=== PATIENT | male | born 1980 | race Caucasian/White ===

== ENCOUNTER → 2016-12-26 | Outpatient (CLI) | payer OTHER ==
--- NOTE | 2016-12-26 18:10 | US ---
EXAMINATION TYPE: US venous doppler duplex LE LT DATE OF EXAM: 12/26/2016 5:35 PM COMPARISON: NONE CLINICAL HISTORY: M79.605 Pain in lower limb. SIDE PERFORMED: Left VESSELS IMAGED: External Iliac Vein (EIV) Common Femoral Vein Deep Femoral Vein Greater Saphenous Vein * Femoral Vein Popliteal Vein Small Saphenous Vein * Proximal Calf Veins (* superficial vessels) No filling defect identified. Normal compressibility seen. Left Leg: Negative for DVT
== END | disposition home or self-care (01) ==
LOC: RADUSMAIN 17:31
PROVIDERS: ATTEND Family Medicine
DX: M79.605 Pain in left leg (principal)

== ENCOUNTER → 2018-01-19 | Outpatient (CLI) | payer OTHER | END | disposition home or self-care (01) | LOC: LABWHC1 09:27 | PROVIDERS: ATTEND Psychiatry & Neurology Pain Medicine | DX: E55.9 Vitamin D deficiency, unspecified (principal) | CPT/HCPCS: 36415; 82306 ==

== ENCOUNTER 2020-12-11 06:36 | Day surgery (SDC) | payer OTHER ==
[2020-12-07 11:48] VITALS: BMI 38.6
[~2020-12-11 06:36] MED LIST: LACTATED RINGERS 1,000 ML IV SCH
[2020-12-11 07:17] VITALS: TEMP 96.9
[2020-12-11 07:20] LABS: Glucose,Whole Blood 194 mg/dL (75-99)
[2020-12-11] MEDS ORDERED: PROPOFOL 10 MG/ML 20 ML VIAL IV ONE (07:50)
--- NOTE | 2020-12-11 08:31 | P.PCN ---
Date of Procedure: 12/11/20 Description of Procedure: Brief history: Patient is a pleasant 40-year-old male presenting for outpatient esophagogastroduodenoscopy and colonoscopy for evaluation of anemia. Patient reports a remote history of EGD and colonoscopy in the past. No family history of colon cancer or IBD. He denies any melena but occasionally see some bright red blood per rectum. Procedure performed: Esophagogastroduodenoscopy with biopsy Colonoscopy with polypectomy Estimated blood loss: Minimal. Preoperative diagnosis: Anemia, microcytic anemia, bright red blood per rectum Anesthesia: MAC Procedure: After informed consent was obtained from the patient was brought into the endoscopy unit and IV sedation was administered by anesthesia under continuous monitoring. Initially upper endoscopy was done. The Olympus GF 190 video endoscope was inserted into the mouth and esophagus intubated without any difficulty and was gradually advanced into the stomach and duodenum and carefully examined. The bulb and second part of the duodenum appeared normal, with biopsies taken to rule out celiac sprue. The scope was then withdrawn into the stomach adequately insufflated with air and upon careful examination the antrum and body, cardia and fundus appeared normal, except for some mild saba thema scattered throughout the antrum and body suggestive of mild gastritis with biopsies taken. The scope was then withdrawn into the esophagus. The GE junction was located at 43 cm to the incisors and biopsied. It appeared regular with no erythema erosions or ulcerations. Rest of the esophagus appeared normal. Patient tolerated the procedure well. At this time the patient continued to remain sedation. Initial digital rectal examination was normal. Olympus CF 190 video colonoscope was then inserted into the rectum and gradually advanced to the cecum without any difficulty. Careful examination was performed as the scope was gradually being withdrawn. The prep was excellent. The cecum, ascending colon, transverse colon, descending colon, sigmoid colon and rectum appeared normal, the terminal ileum was intubated and appeared normal. 13 mm flat transverse colon polyp removed cold snare polypectomy. Cold snare polypectomy of polyps measuring 3 mm to 5 mm in size from the transverse colon 2, descending colon, and sigmoid colon. Retroflexion was performed in the rectum and no lesions were noted, low-grade internal hemorrhoids. Patient tolerated the procedure well. Impression: 1. Mild gastritis. Biopsies of the duodenum, antrum body and GE junction. 2. Large flat transverse colon polyp removed with cold snare polypectomy. Small to medium polyps removed with cold snare from the transverse colon 2, descending colon and sigmoid colon. Internal hemorrhoids. Recommendations: Findings of this examination were discussed with the patient as well as His . Okay to resume diet. Okay to resume medications. Await pathology from biopsies and polypectomy. Follow-up with primary care physician as previously scheduled. Recommendation is for repeat colonoscopy in 3 years for high risk colon polyps pending pathology from polypectomies.
[2020-12-11 09:30] VITALS: BP 125/76; PULSE 70; RESP 20
== END 2020-12-11 09:00 | disposition home or self-care (01) ==
LOC: ORWHC2ENDO 06:36
PROVIDERS: ATTEND Internal Medicine
DX: D12.4 Benign neoplasm of descending colon (principal); D12.5 Benign neoplasm of sigmoid colon; D12.3 Benign neoplasm of transverse colon; K64.8 Other hemorrhoids; K29.51 Unspecified chronic gastritis with bleeding; K21.9 Gastro-esophageal reflux disease without esophagitis; K22.9 Disease of esophagus, unspecified; D50.9 Iron deficiency anemia, unspecified; E11.9 Type 2 diabetes mellitus without complications; I10 Essential (primary) hypertension; E78.5 Hyperlipidemia, unspecified; Z91.018 Allergy to other foods; Z79.84 Long term (current) use of oral hypoglycemic drugs; Z79.899 Other long term (current) drug therapy; Z79.1 Long term (current) use of non-steroidal anti-inflammatories (NSAID); Z98.890 Other specified postprocedural states
CPT/HCPCS: 88305; 45385; 43239; J2704

== ENCOUNTER 2021-09-07 16:55 | Emergency (ER) | payer OTHER ==
[2021-09-07] MEDS ORDERED: ACETAMINOPHEN TAB 500 MG TAB PO STA (22:17)
[2021-09-07] MEDS ORDERED: SODIUM CHLORIDE 0.9% 1,000 ML IV STA (22:17)
[2021-09-07] MEDS ORDERED: IBUPROFEN 600 MG TAB PO STA (22:17)
[2021-09-07] MEDS ORDERED: ONDANSETRON 4 MG/2 ML VIAL IVP STA (22:17)
[2021-09-07] MEDS ORDERED: SODIUM CHLORIDE 0.9% 50 ML IVPB ONE (22:45)
--- NOTE | 2021-09-07 22:53 | XR ---
EXAMINATION TYPE: XR chest 1V portable DATE OF EXAM: 09/07/2021 COMPARISON: NONE HISTORY: Cough TECHNIQUE: Single view FINDINGS: There is some patchy infiltrate and atelectasis in both lung duenas. This is more than the right upper lobe. There is no heart failure. Heart size is normal. There is no pleural effusion. Bony thorax is intact. IMPRESSION: Mild bilateral pneumonia and atelectasis. No heart failure seen.
[2021-09-07] MEDS ORDERED: CASIRIVIMAB/IMDEVIMAB (EUA) 1,200 MG in SODIUM CHLORIDE 0.9% 100 ML IVPB ONE (23:00)
[2021-09-07 23:29] VITALS: BP 153/72
--- NOTE | 2021-09-08 00:34 | ED ---
URI HPI - General Chief Complaint: Upper Respiratory Infection Stated Complaint: IESHA/Cough Time Seen by Provider: 09/07/21 22:03 Source: patient, RN notes reviewed Mode of arrival: ambulatory Limitations: no limitations - History of Present Illness Initial Comments: Patient is a 41-year-old male, with history of diabetes, hypertension, presenting to the emergency department with worsening cough and congestion over the past few days. Patient states he was diagnosed with a sinus infection on Friday and was prescribed amoxicillin as well as a steroid taper pack. He states his symptoms have persisted so he came in for evaluation. He's been having fever, chills, some mild nausea. He only feels short of breath when he is coughing a lot. No chest pains. Patient has been fully vaccinated against Covid. He has no further complaints. Upon arrival to the ER his temperature is 100.3, pulse is 110, 92% on room air. Patient did not take any Tylenol or Motrin prior to arrival. - Related Data Home Medications Medication Instructions Recorded Confirmed Losartan/Hydrochlorothiazide 1 each PO DAILY 08/28/15 12/11/20 [Losartan-Hctz 100-25 mg Tab] Simvastatin [Zocor] 20 mg PO DAILY 08/28/15 12/11/20 amLODIPine [Norvasc] 10 mg PO DAILY 08/28/15 12/11/20 metFORMIN HCL [Glucophage] 1,000 mg PO BID 08/28/15 12/11/20 glipiZIDE [Glucotrol] 5 mg PO AC-BRKFST 09/08/16 12/11/20 Vit C. 1 tab PO DAILY 12/07/20 12/11/20 Vit D3 1 tab PO DAILY 12/07/20 12/11/20 Previous Rx's Medication Instructions Recorded Ibuprofen [Motrin] 800 mg PO Q6HR PRN #20 tab 08/28/15 Albuterol Inhaler [Ventolin Hfa 1 puff INHALATION RT-QID PRN #8 gm 09/08/21 Inhaler] Dexamethasone [Decadron] 6 mg PO DAILY 7 Days #7 tablet 09/08/21 Allergies Allergy/AdvReac Type Severity Reaction Status Date / Time strawberry Allergy Rash/Hives Verified 09/07/21 18:32 Review of Systems ROS Statement: Those systems with pertinent positive or pertinent negative responses have been documented in the HPI. ROS Other: All systems not noted in ROS Statement are negative. Past Medical History Past Medical History: Diabetes Mellitus, Hyperlipidemia, Hypertension History of Any Multi-Drug Resistant Organisms: None Reported Past Surgical History: Hernia Repair Past Anesthesia/Blood Transfusion Reactions: No Reported Reaction Past Psychological History: No Psychological Hx Reported Smoking Status: Never smoker Past Alcohol Use History: None Reported Past Drug Use History: None Reported - Past Family History Mother Family Medical History: Cancer General Exam - General Exam Comments Initial Comments: GENERAL: Patient is well-developed and well-nourished. Patient is nontoxic and in no acute distress. HEAD: Atraumatic, normocephalic. EYES: Pupils equal round and reactive to light, extraocular movements intact, sclera anicteric, conjunctiva are normal. Eyelids were unremarkable. ENT: TMs normal, nares patent, oropharynx clear without exudates. Moist mucous membranes. NECK: Normal range of motion, supple without lymphadenopathy or JVD. LUNGS: Unlabored respirations. Breath sounds clear to auscultation bilaterally and equal. No wheezes rales or rhonchi. HEART: Tachycardia rate and rhythm without murmurs, rubs or gallops. ABDOMEN: Soft, nontender, normoactive bowel sounds. No guarding, no rebound. No masses appreciated. : Deferred MUSCULOSKELETAL: Normal extremities with adequate strength and normal range of motion, no pitting or edema. No clubbing or cyanosis. NEUROLOGICAL: Patient is alert and oriented x 3. SKIN: Warm, Dry, normal turgor, no rashes or lesions noted. Limitations: no limitations Course Vital Signs 09/07/21 09/07/21 09/08/21 18:29 23:28 00:46 Temperature 100.3 F H 99 F 98.5 F Pulse Rate 110 H 100 95 Respiratory 24 18 16 Rate Blood Pressure 138/72 153/72 O2 Sat by Pulse 92 L 94 L 95 Oximetry Medical Decision Making - Medical Decision Making Patient is a 41-year-old male here with cough and congestion over the past week. He was diagnosed sinus infection 4 days ago, prescribed amoxicillin and steroid taper pack. He did arrive slightly febrile, tachycardia. His a rapid Covid is positive. He did agree monoclonal antibodies. Patient was also given fluids, Zofran and Tylenol Motrin. He does report some mild improvement of symptoms. Chest x-ray shows viral pneumonia. Patient is stable for discharge. His pulse ox has stayed above 9495% on room air. He will continue on steroids, inhaler for his symptoms. He did take Tylenol Motrin for fever. He is agreeable to this plan of care. Return parameters were discussed with him and he verbalized understanding. - Lab Data Lab Results 09/07/21 Range/Units 18:35 Coronavirus (PCR) Detected A (Not Detectd) Disposition Clinical Impression: Pneumonia due to COVID-19 virus Disposition: HOME SELF-CARE Condition: Stable Instructions (If sedation given, give patient instructions): Coronavirus Disease 2019 (COVID-19) Additional Instructions: Please return to the Emergency Department if symptoms worsen or any other concerns. Take steroids and use inhaler as prescribed. May use [id number] cough suppressant. Continue to increase your fluids. Take Tylenol and/or Motrin for fever control. Follow up with your primary care as needed. Prescriptions: Dexamethasone [Decadron] 6 mg PO DAILY 7 Days #7 tablet Albuterol Inhaler [Ventolin Hfa Inhaler] 1 puff INHALATION RT-QID PRN #8 gm PRN Reason: Shortness Of Breath Is patient prescribed a controlled substance at d/c from ED?: No Referrals: Nonstaff,Physician [Primary Care Provider] - 1-2 days Time of Disposition: 00:33
[2021-09-08 00:47] VITALS: PULSE 95; RESP 16; TEMP 98.5
== END 2021-09-08 00:50 | disposition home or self-care (01) ==
LOC: EC 16:55
DX: U07.1 COVID-19 (principal); J12.82 Pneumonia due to coronavirus disease 2019; E11.9 Type 2 diabetes mellitus without complications; I10 Essential (primary) hypertension; E78.5 Hyperlipidemia, unspecified; Z79.84 Long term (current) use of oral hypoglycemic drugs
CPT/HCPCS: 99285 ×2; 96375 ×2; 87635; 71045; M0243; J2405; Q0243; 96361; 96374

== ENCOUNTER 2023-12-05 06:36 | Day surgery (SDC) | payer BC, OTHER ==
[2023-12-03 09:12] VITALS: BMI 39.3
[2023-12-05] MEDS: LACTATED RINGERS 1,000 ML IV ONE (06:45)
[2023-12-05 07:04] LABS: Glucose,Whole Blood 147 mg/dL (70-110)
[2023-12-05 07:27] VITALS: TEMP 97.3
[2023-12-05] MEDS ORDERED: LIDOCAINE 1% INJ 10MG/ML (20 ML MDV) ONE (07:43)
[2023-12-05] MEDS ORDERED: PROPOFOL 10 MG/ML 20 ML VIAL IV ONE (07:43)
--- NOTE | 2023-12-05 08:04 | P.PCN ---
Date of Procedure: 12/05/23 Procedure(s) Performed: Brief history: Patient is a pleasant 43-year-old white male scheduled for an elective upper endoscopy as well as colonoscopy as a part of evaluation of I deficiency anemia and history of colon polyps. Last colonoscopy was 3 years ago and was noted to have multiple colon polyps Procedure performed: Esophagogastroduodenoscopy with biopsy Colonoscopy Preoperative diagnosis: Iron deficiency anemia History of colon polyps Anesthesia: MAC Procedure: After informed consent was obtained from the patient was brought into the endoscopy unit and IV sedation was administered by anesthesia under continuous monitoring. Initially upper endoscopy was done. The Olympus GF 160 video endoscope was inserted inserted into the mouth and esophagus intubated without any difficulty and was gradually advanced into the stomach and duodenum and carefully examined. The bulb and second part of the duodenum appeared normal. Biopsies were done from the duodenum to rule out celiac disease. The scope was then withdrawn into the stomach adequately insufflated with air and upon careful examination the antrum had mild gastritis and biopsies were done from this area. Mucosa of the body, cardia and fundus appeared normal. The scope was then withdrawn into the esophagus. The GE junction was located at 40 cm to the incisors. It appeared regular with no erythema erosions or ulcerations. Rest of the esophagus appeared normal. Patient tolerated the procedure well. At this time the patient continued to remain sedation. Initial digital rectal examination was normal. Olympus CF 160 video colonoscope was then inserted into the rectum and gradually advanced to the cecum without any difficulty. Careful examination was performed as the scope was gradually being withdrawn. The prep was excellent. The cecum, ascending colon, transverse colon, descending colon, sigmoid colon and rectum appeared normal. Retroflexion was performed in the rectum and no lesions were noted. Patient tolerated the procedure well. Impression: 1. Upper endoscopy revealed mild antral gastritis but no evidence of esophagitis or peptic ulcer disease 2. Colonoscopy was within normal limits with no evidence of colorectal neoplasia Recommendations: Findings of this examination were discussed with the patient as well as his family. He was advised to follow with the biopsy results. Recommend repeat colonoscopy in 5 years because of prior history of colon polyps..
[2023-12-05 08:14] LABS: Glucose,Whole Blood 140 mg/dL (70-110)
[2023-12-05 08:29] VITALS: BP 123/79; PULSE 98; RESP 20
== END 2023-12-05 09:06 | disposition home or self-care (01) ==
LOC: ORWHC2ENDO 06:36
PROVIDERS: ATTEND Internal Medicine Gastroenterology
DX: Z12.11 Encounter for screening for malignant neoplasm of colon (principal); D50.9 Iron deficiency anemia, unspecified; K29.50 Unspecified chronic gastritis without bleeding; E78.5 Hyperlipidemia, unspecified; E11.9 Type 2 diabetes mellitus without complications; K21.9 Gastro-esophageal reflux disease without esophagitis; E66.01 Morbid (severe) obesity due to excess calories; Z79.84 Long term (current) use of oral hypoglycemic drugs; Z79.899 Other long term (current) drug therapy; Z86.010 Personal history of colon polyps; Z68.45 Body mass index [BMI] 70 or greater, adult
CPT/HCPCS: 45378; 43239; J2001; J2704; 88305

== ENCOUNTER 2024-12-18 10:06 | Emergency (ER) | payer BC ==
[2024-12-18] MEDS: KETOROLAC 15 MG/ML 1 ML VIAL IM STA (11:34)
[2024-12-18] MEDS: ORPHENADRINE 30 MG/ML 2 ML VIAL IM STA (11:35)
[2024-12-18] MEDS: methylPREDNISolone SOD SUCCI 125 MG/2 ML VIAL IM ONE (11:35)
[2024-12-18] MEDS: LIDOCAINE 4% PATCH TOPICAL ONE (11:35)
--- NOTE | 2024-12-18 11:38 | ED ---
Back Pain [facility] - General Chief Complaint: Back Pain/Injury Stated Complaint: Back pain Time Seen by Provider: 12/18/24 10:29 Source: patient Mode of arrival: ambulatory Limitations: no limitations - History of Present Illness Initial Comments: This is a 44-year-old male with history of back pain presenting with left lower back pain (08/05) x 6 days. Patient states pain is worsening with radiating pain traveling to left foot. States pain worsens when seated and weightbearing. Endorses recently receiving lumbar x-ray yesterday which indicated spondy lolisthesis, arthropathy and degenerative disc disease. Endorses use of ibuprofen, Aleve and Flexeril with minimal relief. Denies saddle paresthesia or urinary incontinence/retention. MD Complaint: back pain Onset/Timin -: days(s) Similar Symptoms Previously: Yes Radiation: left leg Severity scale (1-10): 10 Consistency: constant Improves With: immobilization Worsens With: movement, sitting upright, walking Associated Symptoms: difficulty walking Treatments Prior to Arrival: NSAIDS, other medications (Flexeril) - Related Data Home Medications Medication Instructions Recorded Confirmed Losartan/Hydrochlorothiazide 1 each PO DAILY 08/28/15 12/05/23 [Losartan-Hctz 100-25 mg Tab] Simvastatin [Zocor] 20 mg PO HS 08/28/15 12/05/23 amLODIPine [Norvasc] 10 mg PO DAILY 08/28/15 12/05/23 metFORMIN HCL [Glucophage] 500 mg PO BID 08/28/15 12/05/23 Ascorbic Acid [Vitamin C] 1,000 mg PO DAILY 12/03/23 12/05/23 Cholecalciferol [Vitamin D3 (125 125 mcg PO DAILY 12/03/23 12/05/23 Mcg = 5000 Iu)] Montelukast [Singulair] 10 mg PO HS 12/03/23 12/05/23 Omeprazole 20 mg PO DAILY 12/03/23 12/05/23 Semaglutide [Ozempic] 2 mg SQ MO 12/03/23 12/05/23 glipiZIDE [Glucotrol] 10 mg PO HS 12/03/23 12/05/23 Previous Rx's Medication Instructions Recorded Ibuprofen [Motrin] 800 mg PO Q6HR PRN #20 tab 08/28/15 Cyclobenzaprine [Flexeril] 10 mg PO TID PRN #15 tab 12/18/24 Ibuprofen [Motrin] 800 mg PO Q8HR PRN #30 tab 12/18/24 Lidocaine 4% Patch 1 patch TOPICAL Q24H PRN #10 patch 12/18/24 predniSONE 50 mg PO DAILY #5 tab 12/18/24 Allergies Allergy/AdvReac Type Severity Reaction Status Date / Time strawberry Allergy Rash/Hives Verified 12/18/24 10:13 Review of Systems ROS Statement: Those systems with pertinent positive or pertinent negative responses have been documented in the HPI. ROS Other: All systems not noted in ROS Statement are negative. Past Medical History Past Medical History: Diabetes Mellitus, GERD/Reflux, Hyperlipidemia, Hypertension Additional Past Medical History / Comment(s): SEASONAL ALLERGIES History of Any Multi-Drug Resistant Organisms: None Reported Past Surgical History: Hernia Repair Additional Past Surgical History / Comment(s): COLONOSCOPY/EGD Past Anesthesia/Blood Transfusion Reactions: No Reported Reaction Past Psychological History: No Psychological Hx Reported Smoking Status: Never smoker Past Drug Use History: None Reported - Past Family History Mother Family Medical History: Cancer General Exam General appearance: alert, in no apparent distress Head exam: Present: atraumatic, normocephalic, normal inspection Eye exam: Present: normal appearance, PERRL, EOMI. Absent: scleral icterus, conjunctival injection, periorbital swelling ENT exam: Present: normal exam, mucous membranes moist Neck exam: Present: normal inspection. Absent: tenderness, meningismus, lymphadenopathy Respiratory exam: Present: normal lung sounds bilaterally. Absent: respiratory distress, wheezes, rales, rhonchi, stridor Cardiovascular Exam: Present: regular rate, normal rhythm, normal heart sounds. Absent: systolic murmur, diastolic murmur, rubs, gallop, clicks GI/Abdominal exam: Present: soft, normal bowel sounds. Absent: distended, tenderness, guarding, rebound, rigid Extremities exam: Present: normal inspection, full ROM, normal capillary refill, other (Bilateral posterior tibialis pulse +2). Absent: tenderness, pedal edema, joint swelling, calf tenderness Back exam: Present: normal inspection, paraspinal tenderness (Positive left lumbar and sacral paraspinal muscle spasm and tenderness). Absent: vertebral tenderness Neurological exam: Present: alert, oriented X3, CN II-XII intact Psychiatric exam: Present: normal affect, normal mood Skin exam: Present: warm, dry, intact, normal color. Absent: rash Course Vital Signs 12/18/24 10:08 Temperature 98 F Pulse Rate 89 Respiratory 18 Rate Blood Pressure 152/82 O2 Sat by Pulse 96 Oximetry Medical Decision Making - Medical Decision Making Was pt. sent in by a medical professional or institution (ALESIA Farrell, ADULT CROSSING GUARD, urgent care, hospital, or intermediate...) When possible be specific @ -No Did you speak to anyone other than the patient for history (EMS, parent, family, police, friend...)? What history was obtained from this source @ -No Did you review nursing and triage notes (agree or disagree)? Why? @ -I reviewed and agree with nursing and triage notes Were old charts reviewed (outside hosp., previous admission, EMS record, old EKG, old radiological studies, urgent care reports/EKG's, intermediate records)? Report findings @ -No old charts were reviewed Differential Diagnosis (chest pain, altered mental status, abdominal pain women, abdominal pain men, vaginal bleeding, weakness, fever, dyspnea, syncope, headache, dizziness, GI bleed, back pain, seizure, CVA, palpatations, mental health, musculoskeletal)? @ -Differential Back Pain: Strain, zoster, cauda equina syndrome, epidural abscess, vertebral osteomyelitis, discitis, fracture, subluxation, disc herniation, DJD, spinal stenosis, dissection, AAA, pancreatitis, peptic ulcer disease, pyelonephritis, kidney stone, this is not meant to be an all-inclusive list. EKG interpreted by me (3pts min.). @ -Not done X-rays interpreted by me (1pt min.). @ -None done CT interpreted by me (1pt min.). @ -Lumbar spine CT shows multilevel spinal canal stenosis due to disc bulging, multilevel for aminal stenosis most severe at L4/L5 and facet hypertrophy from L2-L5. No obvious vertebral fracture or dislocation noted. U/S interpreted by me (1pt. min.). @ -None done What testing was considered but not performed or refused? (CT, X-rays, U/S, labs)? Why? @ -None What meds were considered but not given or refused? Why? @ -None Did you discuss the management of the patient with other professionals (professionals i.e. Dr., PA, ADULT CROSSING GUARD, lab, RT, psych nurse, director social welfare, textile screen printer, teacher, admitting officer, casework specialist)? Give summary @ -No Was smoking cessation discussed for >3mins.? @ -No Was critical care preformed (if so, how long)? @ -No Were there social determinants of health that impacted care today? How? (Homelessness, low income, unemployed, alcoholism, drug addiction, tra nsportation, low edu. Level, literacy, decrease access to med. care, skilled nursing, rehab)? @ -No Was there de-escalation of care discussed even if they declined (Discuss DNR or withdrawal of care, Hospice)? DNR status @ -No What co-morbidities impacted this encounter? (DM, HTN, Smoking, COPD, CAD, Cancer, CVA, ARF, Chemo, Hep., AIDS, mental health diagnosis, sleep apnea, morbid obesity)? @ -DM Was patient admitted / discharged? Hospital course, mention meds given and route, prescriptions, significant lab abnormalities, going to OR and other pertinent info. @ -Lumbar spine CT shows multilevel spinal canal stenosis due to disc bulging, multilevel for aminal stenosis most severe at L4/L5 and facet hypertrophy from L2-L5. No obvious vertebral fracture or dislocation noted. Patient initially provided IM Toradol, Solu-Medrol and Norflex as well as lidocaine patch. Patient notes significant ongoing pain provided IM Dilaudid twice until pain was tolerable to patient. Motrin 800, prednisone, Flexeril and lidocaine patches sent to patient's pharmacy. Advised follow-up with orthospine for ongoing management of lower back pain. Discussed patient with Dr. Chatman. Undiagnosed new problem with uncertain prognosis? @ -No Drug Therapy requiring intensive monitoring for toxicity (Heparin, Nitro, Insulin, Cardizem)? @ -No Were any procedures done? @ -No Diagnosis/symptom? @ -Spinal canal stenosis with disc bulging, sciatica with left lumbar radiculopathy Acute, or Chronic, or Acute on Chronic? @ -Acute Uncomplicated (without systemic symptoms) or Complicated (systemic symptoms)? @ -Uncomplicated Side effects of treatment? @ -No Exacerbation, Progression, or Severe Exacerbation? @ -No Poses a threat to life or bodily function? How? (Chest pain, [place], NH, pneumonia, PE, COPD, DKA, ARF, appy, cholecystitis, CVA, Diverticulitis, Homicidal, Suicidal, threat to staff... and all critical care pts) @ -No Disposition Clinical Impression: Sciatica, Lumbar radiculopathy, Central stenosis of spinal canal Disposition: HOME SELF-CARE Condition: Good Instructions (If sedation given, give patient instructions): Sciatica (ED), Lumbar Radiculopathy (ED) Additional Instructions: Follow-up with orthospine for ongoing management of pain Prescriptions: Cyclobenzaprine [Flexeril] 10 mg PO TID PRN #15 tab PRN Reason: Muscle Spasm Lidocaine 4% Patch 1 patch TOPICAL Q24H PRN #10 patch PRN Reason: Pain Ibuprofen [Motrin] 800 mg PO Q8HR PRN #30 tab PRN Reason: Pain predniSONE 50 mg PO DAILY #5 tab Is patient prescribed a controlled substance at d/c from ED?: No Referrals: Yamilka Martinez DO [Primary Care Provider] - 1-2 days José Gillespie DO [Doctor of Osteopathic Medicine] - 1-2 days Time of Disposition: 14:14
[2024-12-18] MEDS: HYDROmorphone 1 MG/ML 1 ML SYRINGE IM STA ×2 (12:18→13:03)
--- NOTE | 2024-12-18 14:00 | CT ---
EXAMINATION TYPE: CT lumbar spine wo con DATE OF EXAM: 12/18/2024 1:35 PM COMPARISON: None. CLINICAL INDICATION: Male, 44 years old with history of Recalcitrant pain, Recalcitrant pain, lumbar region, Denies injury, pain TECHNIQUE: CT of the lumbar spine is performed on a spiral scan at 3 mm thick sections. Reconstructed images are performed in the coronal and sagittal planes. Contrast used: mL of , (none if empty) Oral contrast used: (none if empty) CT DLP: 2231.6 mGycm, Automated exposure control for dose reduction was used. FINDINGS: T12-L1: Mild disc bulge with mild anterior thecal sac compression. No AP spinal canal stenosis. L1-L2: Broad-based disc bulge is present. No AP spinal canal stenosis. Facet hypertrophy is present. L2-L3: Broad-based disc bulge is present with anterior thecal sac impression. Facet hypertrophy and l igamentum flavum laxity is present. Some spinal canal stenosis is present. L3-L4: Broad-based disc bulge is mild to moderate anterior thecal sac compression. Facet hypertrophy is present with calcified ligament flavum. Spinal canal stenosis is present. L4-L5: There is mild narrowing of the disc height. Disc bulge and endplate spurring has moderate ante rior thecal sac compression. Facet hypertrophy and ligamentum flavum laxity is present. Spinal canal stenosis is present. L5-S1: Mild disc bulge is present. No significant thecal sac compression is evident. Some left exitin g S1 nerve root contact is not excluded. Correlate with radicular symptoms. Multilevel foraminal stenosis is present. On the left this is most severe at L4-5 but remains severe at L5-S1. More moderate foraminal narrowing is present L3-4 L2-3. On the on the right severe foramina l stenosis is present L4-5 with more moderate to severe foraminal narrowing L5-S1 and moderate forami nal narrowing L3-4 and L2-3. Vertebral alignment appears normal. IMPRESSION: 1. Multilevel spinal canal stenosis due to disc bulging and facet hypertrophy essentially L2-3 throug h L5-4-5. 2. Multilevel foraminal stenosis discussed above most severe is bilateral L4-5 foramen. 3. No acute osseous abnormality radiographically apparent. [facility], , 12/18/2024 1:57 PM
[2024-12-18] MEDS: ACET/COD 300 MG/30 MG STARTER PACK 6 TAB BTL PO STA (14:27)
[2024-12-18 14:33] VITALS: BP 125/66; PULSE 107; RESP 20; TEMP 97.7
== END 2024-12-18 14:35 | disposition home or self-care (01) ==
LOC: EC 10:06
DX: M48.061 Spinal stenosis, lumbar region without neurogenic claudication (principal); M51.16 Intervertebral disc disorders with radiculopathy, lumbar region; E11.9 Type 2 diabetes mellitus without complications; Z79.84 Long term (current) use of oral hypoglycemic drugs; Z91.018 Allergy to other foods
CPT/HCPCS: 99284; 96372 ×5; 72131; J2360; J1171; J1885; J2919